=== PATIENT | female | born 1970 | race African-American/Black ===

== ENCOUNTER 2018-02-20 12:58 | Emergency (ER) | payer OTHER ==
[~2018-02-20] VITALS: Ht 157.5 cm; Wt 122.0 kg
[~2018-02-20 12:58] MED LIST: ALBUTEROL INHAL17 GM IH; FLONASE 0.05%50 MCG; NORCO 5-325 TA1 EACH PO
[2018-02-20] MEDS ORDERED: AUGMENTIN 875-1 EACH (13:13)
[2018-02-20] MEDS ORDERED: TESSALON PERLE100 M1 PO (13:16)
== END 2018-02-20 13:23 | disposition home or self-care (01) ==
LOC: ER 12:58
DX: J32.9 Chronic sinusitis, unspecified (principal); J06.9 Acute upper respiratory infection, unspecified; K21.9 Gastro-esophageal reflux disease without esophagitis; J45.909 Unspecified asthma, uncomplicated